=== PATIENT | female | born 1960 | race Caucasian/White ===

== ENCOUNTER 2019-07-24 08:53 | Day surgery (SDC) | payer MEDICAID ==
[~2019-07-24] VITALS: Ht 172.7 cm; Wt 92.1 kg
[2019-07-24] MEDS ORDERED: HYDROmorphone 1 MG INJ. 1 MG/ML AMPUL IVP PRN (12:45)
[2019-07-24] MEDS ORDERED: ONDANSETRON HCL 4 MG/2 ML VIAL IVP PRN (12:45)
[2019-07-24] MEDS: HYDROmorphone 1 MG INJ. 1 MG/ML AMPUL IVP PRN ×2 (14:40→14:55)
[2019-07-24] MEDS ORDERED: EPINEPHrine 1 MG/ML AMP ONE (14:42)
[2019-07-24] MEDS ORDERED: LR 1,000 ML IV.SOLN IV ONE (14:42)
[2019-07-24] MEDS ORDERED: WATER FOR IRRIGATION,STERILE 1,000 ML IRRIG.SOLN IR ONE (14:42)
[2019-07-24] MEDS ORDERED: ROCURONIUM BROMIDE 10 MG/ML (ZEMURON) ONE (14:42)
[2019-07-24] MEDS ORDERED: LIDOCAINE/EPI 1% 1:100000 20 ML VIAL INJ ONE (14:42)
[2019-07-24] MEDS ORDERED: DEXAMETHASONE SOD PHOSPHATE 4 MG/ML VIAL ONE (14:42)
[2019-07-24] MEDS ORDERED: PROPOFOL 200MG/ 20ML VIAL (DIPRIVAN) IV ONE (14:42)
[2019-07-24] MEDS ORDERED: ONDANSETRON HCL 4 MG/2 ML VIAL ONE ×2 (14:42→15:24)
[2019-07-24] MEDS ORDERED: SEVOFLURANE 15 MIN GAS INH ONE (14:42)
[2019-07-24] MEDS ORDERED: fentaNYL CITRATE/PF 100 MCG/2 ML AMP ONE (14:42)
[2019-07-24] MEDS ORDERED: HYDROmorphone 2 MG/ML VIAL IVP ONE (14:42)
[2019-07-24] MEDS ORDERED: NS IRRIG SOLN 1000 ML IR ONE (14:42)
[2019-07-24] MEDS ORDERED: SUCCINYLCHOLINE CHLORIDE 20 MG/ML(QUELICIN) ONE (14:42)
[2019-07-24] MEDS ORDERED: HYDROmorphone 1 MG INJ. 1 MG/ML AMPUL ONE (14:58)
[2019-07-24] MEDS ORDERED: METOCLOPRAMIDE HCL 10 MG/2 ML VIAL IVP ONE (16:00)
[2019-07-24 16:12] VITALS: BP_SYST 137
[2019-07-24] MEDS ORDERED: METOCLOPRAMIDE HCL 10 MG/2 ML VIAL ONE (16:16)
== END 2019-07-24 18:00 | disposition home or self-care (01) ==
LOC: SMU 08:53 → SDS 08:53
PROVIDERS: ATTEND Otolaryngology
DX: J32.8 Other chronic sinusitis (principal); J34.89 Other specified disorders of nose and nasal sinuses; E66.9 Obesity, unspecified; I10 Essential (primary) hypertension; D38.5 Neoplasm of uncertain behavior of other respiratory organs; I48.91 Unspecified atrial fibrillation
CPT/HCPCS: 30140; 31255; 31267; 31295; 31298; 87070; 87075; 87101; 87116; 88305; 88311; J0171; J0330; J1100; J1170; J2405; J2704; J2765; J3010; J7120; 88312